=== PATIENT | female | born 1970 | race Caucasian/White ===

== ENCOUNTER 2016-09-09 15:15 | Observation (INO) | payer OTHER ==
[~2016-09-09] VITALS: Ht 172.7 cm; Wt 124.3 kg
--- NOTE | 2016-09-09 16:25 | DIAGNOSTIC IMAGING REPORT ---
PROCEDURE: XR CHEST 1 VIEW INDICATION: CHEST PAIN TECHNIQUE: Portable AP view (1535 hours). COMPARISON: None. FINDINGS: Allowing for overlying wires and electrodes, lungs are clear. Heart and mediastinum are normal. Thorax is normal. IMPRESSION: 1. Negative chest.
--- NOTE | 2016-09-09 16:36 | ED NURSING NOTES ---
Clinical Report - Nurses [facility] [address] [place] [address] 09/09/2016 15:18 Patient: CHRISTA BANGURA TRIAGE Triage time 15:23 Sep 09 2016. Acuity: LEVEL 2. Chief Complaint: CHEST PAIN. Alert. No acute distress. --15:35 Renae Harris R.N. 15:23 09/09/16. BP: 136/71. HR: 71. RR: 20. O2 saturation: 98%. Temp: 98.5 F. Pain level now: 09/22. --15:35 Renae Harris R.N. Weight: 122.4 kg stated. Height/Length: 68 inches Per Patient. BMI: 41. --15:22 Mandi Phelan R.N. Medications ZyrTEC Allergy Oral (Tablet 10 mg) 1 tablet. --15:26 Renae Harris R.N. Buproban Oral (Tablet Extended Release 12 Hour 150 mg) 1 tablet, TID. --15:26 Renae Harris R.N. Ventolin HFA Inhalation 1 puff, as needed. --15:27 Renae Harris R.N. Baclofen 1 tab, at bedtime. --15:29 Renae Harris R.N. Naproxen Oral (Tablet 500 mg), 3x a day as needed. --15:30 Renae Harris R.N. Allergies No Known Drug Allergy. --15:28 Renae Harris R.N. History Arrived by private vehicle. Historian: patient. Accompanied by family. 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 This started just prior to arrival. She has had difficulty breathing. No nausea or vomiting. Treatment NOVELTY DIPPER: None. PAST MEDICAL HX: Immunizations: up-to-date. Last normal menstrual period was 2 weeks ago. Denies current . SOCIAL HX: Never smoker. Occasional alcohol use; consumes wine occasionally. Last drink was 1 weeks ago. No drug use. No infectious disease exposure. FALL RISK ASSESSMENT: Fall risk assessment completed. No fall risk identified. NUTRITIONAL RISK ASSESSMENT: The nutritional risk assessment revealed no deficiencies. FUNCTIONAL ASSESSMENT: Functional assessment: no impairments noted. LEARNING NEEDS ASSESSMENT: The learning needs assessment revealed no barriers. SKIN INTEGRITY ASSESSMENT: Skin integrity risk assessment completed. No skin integrity risk identified. --15:35 Renae Harris R.N. PROBLEMS: Depression. Asthma. Anxiety Reaction. Back spasms. --15:32 Renae Harris R.N. 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 . Oral surgery. --15:32 Renae Harris R.N. Interventions ID band on patient. --15:35 Renae Harris R.N. PHYSICAL ASSESSMENT GENERAL / NEURO / PSYCH: Alert. Oriented X 4. Appears in no acute distress. RESPIRATORY: Respirations not labored. CVS: Capillary refill less than 2 seconds. GI / : Abdomen nontender. EXTREMITIES: No lower extremity edema. SKIN: Skin is warm and dry. --15:35 Renae Harris R.N. NURSING PROGRESS NOTES <<STRICKEN ENTRY-- clinical research monitor, pulse oximeter and NIBP monitor placed on patient; monitoring manager- Lead II; monitor alarms on. EKG time: (15:30 Sep 09 2016). EKG was performed by a tech and shown to the ED physician. Patient gowned. Head of bed elevated. Two patient identifiers checked. Call light placed in reach. Side rails up x 1. Bed placed in lowest position. Brakes of bed on. Patient ready for evaluation. --15:36 Renae Harris R.N. --END STRIKE>> wrong time for EKG --15:57 Renae Harris R.N. 15:32 09/09/2016 Site #1 started via IV in the right antecubital space with an 20g angiocath; one attempt. Blood drawn: rainbow set. Labeled in the presence of the patient and sent to the lab. Saline lock flushed with 10 mL saline. --15:37 Renae Harris R.N. EKG time: (15:28 AM). EKG was performed by a tech and shown to the ED physician. --15:49 Ari Lares 15:51 09/09/2016 Aspirin PO Tablets 325 mg given. Allergies verified and confirmed 5 rights. --15:55 Jac Frias R.N. <<STRICKEN ENTRY-- 15:52 09/09/2016 Aspirin PO Tablets 325 mg given. Allergies verified and confirmed 5 rights. --15:55 Jac Frias R.N. --END STRIKE>> Change to Details. --15:55 Jac Frias R.N. 15:52 09/09/2016 Nitroglycerin SL Tablets 0.4 mg given. Allergies verified and confirmed 5 rights. --15:56 Jac Frias R.N. 15:52 09/09/2016 NITROGLYCERIN PASTE Topical Paste 1 inch. Applied to the left chest. Allergies verified and confirmed 5 rights. --15:56 Jac Frias R.N. clinical research monitor, pulse oximeter and NIBP monitor placed on patient; monitoring manager- Lead II; monitor alarms on. EKG time: (15:28 Sep 09 2016). EKG was performed by a tech and shown to the ED physician. Patient gowned. Head of bed elevated. Two patient identifiers checked. Call light placed in reach. Side rails up x 1. Bed placed in lowest position. Brakes of bed on. Patient ready for evaluation. --15:57 Renae Harris R.N. 16:10 09/09/16. BP: 117/68. HR: 75. O2 saturation: 100%. Pain level now 08/25. --16:11 Mandi Phelan R.N. ( Nitro #2.). --16:11 Mandi Phelan R.N. 16:41 09/09/16. BP: 127/71. HR: 79. RR: 18. O2 saturation: 100%. Pain level now 07/25. --16:42 Mandi Phelan R.N. ( Nitro #3.). --16:42 Mandi Phelan R.N. 16:45 09/09/2016 Lovenox (Enoxaparin Sodium) Subcutaneous 100 mg given. Given in the right abdomen. --16:45 Mandi Phelan R.N. DISPOSITION / DISCHARGE Admitted to Acute Care. Report was given to a nurse. Report included patient's care, treatment, medications, reviewed medication reconcilliation, and condition (including any recent changes or anticipated changes). (HAN Velazquez). --17:08 Mandi Phelan R.N. Cardiac rhythm: normal sinus rhythm. Condition at departure: stable. --17:13 Mandi Phelan R.N. 17:13 09/09/16. BP: 126/56. HR: 76. RR: 18. O2 saturation: 100%. Pain level now 0/10. --17:13 Mandi Phelan R.N. Departure time: 17:20 Sep 09 2016. --17:20 Mandi Phelan R.N. ( pt taken up by JOAO Chapman). --17:21 Mandi Phelan R.N. Locked/Released at 09/10/2016 22:31 by Renae Harris R.N.
--- NOTE | 2016-09-09 16:36 | ED CLINICAL REPORT ---
Clinical Report - Physicians/Mid Levels [facility] [address] [place] [address] 09/09/2016 15:18 Patient: CHRISTA BANGURA Time Seen: 15:26. Arrived- By private vehicle. Historian- patient. HISTORY OF PRESENT ILLNESS Chief Complaint: CHEST DISCOMFORT. At its maximum, severity described as moderate. When seen in the E.D., severity described as mild. Modifying factors. Not worsened by anything. Not relieved by anything. This started about 1 hour ago and is still present. It was gradual in onset and has been waxing/waning. Onset during light activity. It is described as pressure and it is described as located in the central chest area, jaw and neck and radiating to the neck and to the right jaw. No nausea, vomiting or diaphoresis. She has had mild difficulty breathing. Similar symptoms previously: None. Recent medical care: The patient was seen recently in a clinic. Seen for other problems. Evaluation/treatment- given naproxen and baclofen. Diagnosis: (back pain). REVIEW OF SYSTEMS Last normal menstrual period was 2 weeks ago. No fever, chills, cough, pedal edema or calf pain. No fainting episodes, headache, sore throat, blurred vision or abdominal pain. No black stools, difficulty with urination, skin rash, enlarged lymph nodes or bloody stools. The patient has had joint pain (back pain). All systems otherwise negative, except as recorded above. PAST HISTORY PCP: Dr Jefferson ([facility]) PROBLEMS: GERD. Depression. Asthma. Environmental allergies. Anxiety Reaction. Back pain. 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 . Oral surgery. Medications: Naproxen Oral (Tablet 500 mg), 3x a day as needed. Baclofen 1 tab, at bedtime. Ventolin HFA Inhalation 1 puff, as needed. Buproban Oral (Tablet Extended Release 12 Hour 150 mg) 1 tablet, TID. ZyrTEC Allergy Oral (Tablet 10 mg) 1 tablet. Allergies: No Known Drug Allergy. SOCIAL HISTORY Never smoker. Occasional alcohol use. No drug use. Is a local resident. Patient is employed. (works for the [employer]). FAMILY HISTORY History of heart disease (father from viral cardiomyopathy age 39 y; Grandfather from [place] in 60's y/o). ADDITIONAL NOTES The nursing notes have been reviewed. PHYSICAL EXAM Vital Signs: 09/09/2016 15:23 BP: 136/71. HR: 71. RR: 20. O2 saturation: 98%. Temp: 98.5 F. Pain level now: 310. Appearance: Alert. Oriented X3. No acute distress. Eyes: Pupils equal, round and reactive to light. Eyes normal inspection. No scleral icterus or pale conjunctivae. ENT: Pharynx normal. No pharyngeal erythema or tonsillar exudate. The mucous membranes are not dry. Neck: Normal inspection. Neck supple. CVS: Normal heart rate and rhythm. Heart sounds normal. Pulses normal. Respiratory: No respiratory distress. Breath sounds normal. Chest nontender. No chest pain reproduced on physical exam, decreased air movement, rales, rhonchi or wheezes. Abdomen: Soft and nontender. No mass. Back: Normal external inspection. Skin: Skin warm and dry. Normal skin color. Normal skin turgor. Extremities: Extremities exhibit normal ROM. No lower extremity edema. Neuro: Oriented X 3. No motor deficit. LABS, X-RAYS, AND EKG EKG: EKG time: (15:28). Normal sinus rhythm. Rate: 70. Normal P waves. Normal PARISH. Nondiagnostic Q waves in lead III, aVF and V2 (small R in V3). Non-specific ST segment / T wave abnormalities. Non-specific T wave flattening in lead aVF. Non-specific T wave inversion in lead III, aVR and V3. Prior EKG unavailable. The study has been interpreted contemporaneously by me. The EKG appears to be a good tracing. Rhythm Strip #1: Normal sinus rhythm. Regular rhythm. Narrow QRS complexes. No ectopy. Chest X-ray: No acute disease. Normal lung markings present. Normal heart size. Mediastinum normal. Great vessels normal. No infiltrate. Views: AP (portable). Technique: good. The X-rays were interpreted contemporaneously by me. Laboratory Tests: CBC w Diff: (CASH: 09/09/2016 15:35) ( MsgRcvd 09/09/2016 15:48) Final results Test Result Flag Units (Reference) WHITE BLOOD COUNT 7.1 K/uL (4.5-11.5) RED BLOOD COUNT 4.65 M/uL (4.00-5.20) HEMOGLOBIN 13.6 gm/dL (12.0-16.0) HEMATOCRIT 40.7 % (36.0-46.0) MEAN CELL VOLUME 88 fL (80-100) MEAN CORPUSCULAR HGB 29 pg (26-34) MEAN CORPUSCULAR HGB CONC 34 g/dL (31-37) RED CELL DISTRIBUTION WIDTH 13.3 % (11.6-14.8) PLATELET COUNT 222 K/uL (150-400) NEUTROPHIL % 56.5 % (50-75) LYMPH % 29.8 % (25-40) MONO % 8.9 % (3-14) EOSINOPHIL % 4.4 H % (0-4) BASOPHIL % 0.4 % (0-2) PT with INR: (CASH: 09/09/2016 15:35) ( MsgRcvd 09/09/2016 16:01) Final results Test Result Flag Units (Reference) INR 1.0 (0.8-1.2) Low Intensity Therapy: INR 1.5-2.0 PT range 18.5-23.1Mod.Intensity Therapy: INR 2.0-3.0 PT range 23.1-31.5High Intensity Therapy: INR 2.5-3.5 PT range 27.4-35.5High Intensity Therapy 2: INR 3.0-4.0 PT range 31.5-39.3 D-DIMER QUANTITATIVE < 0.27 L ug/mLFEU (0.27-0.52) The primary value of this quantitative assay relates toits negative predictive value (i.e. exclusion) of pulmonaryembolism/deep vein thrombosis/DIC.Elevated levels of d-dimer may also occur with:, age, cancer, inflammation, liver disease,post-op, infection, hematoma, coronary disease, peripheralarteriopathy, bleeding disorders and thrombolytic treatment.Results should be correlated with other clinical andradiological data.Testing Methodology: Latex Immunoassay BNP: (CASH: 09/09/2016 15:35) ( [facility] [place] 09/09/2016 16:20) Final results Test Result Flag Units (Reference) B-TYPE NATRIURETIC PEPTIDE 5.2 pg/ml (5-100) Amylase: (CASH: 09/09/2016 15:35) ( [facility] [place] 09/09/2016 16:11) Final results Test Result Flag Units (Reference) AMYLASE 52 U/L (25-115) THYROID STIMULATING HORMONE 2.135 uIU/mL (0.34-3.74) CHEM 13 PANEL: (CASH: 09/09/2016 15:35) ( [facility] [place] [place] 09/09/2016 16:02) Final results Test Result Flag Units (Reference) GLUCOSE 100 mg/dL (70-110) BUN 14 mg/dL (7-18) CREATININE 0.8 mg/dL (0.6-1.3) Estimated GFR >60 mL/min Estimated GFR- >60 mL/min Note: Persistent reduction over 3 months in eGFR<60 mL/min/1.73 m2 defines CKD. Patients with eGFR values>=60 mL/min/1.73 m2 may also have CKD if evidence ofpersistent proteinuria. Additional information may be foundat www.kidney.org. SODIUM 142 mmol/L (136-145) POTASSIUM 4.0 mmol/L (3.5-5.1) CHLORIDE 107 mmol/L (98-107) CARBON DIOXIDE 25 mmol/L (21-32) CALCIUM 8.3 L mg/dL (8.5-10.1) TOTAL PROTEIN 7.2 g/dL (6.4-8.2) ALBUMIN 3.7 g/dL (3.3-5.0) BILIRUBIN, TOTAL 0.3 mg/dL (0.0-1.0) ALKALINE PHOSPHATASE 59 U/L (46-116) AST (SGOT) 10 L U/L (15-37) ALT (SGPT) 27 U/L (12-78) CPK 125 U/L (24-260) MAGNESIUM 1.8 mg/dL (1.8-2.4) TROPONIN I <0.05 L ng/mL (0.00-1.5) TROPONIN REFERENCE RANGE:<0.1 NEGATIVE0.1-1.5 INDETERMINANT>1.5 POSITIVE . Pulse Oximetry: 09/09/2016 15:23 O2 saturation: 98%. (FIO2 - room air). Interpretation: normal. PROGRESS AND PROCEDURES Course of Care: Nitroglycerin 1 inch paste given. Nitroglycerin 0.4 mg tab x3 SL given. Normal Saline 1 liter IVPB given. ASA 325 mg PO given. Lovenox 100 mg subQ given. Pt states she has had GERD, but "this feels different" Patient is stable. Physical exam findings are improved. Symptoms much better. Discussed case with hospitalist, ([place] call placed 16:17; call returned 16:32). Reviewed test results. Agreed upon treatment plan and decision to place in observation. Health care provider will see patient in hospital. Patient/family counseled. Disposition orders written. Disposition: Observation in Acute Care. Condition: stable and improved. CLINICAL IMPRESSION Precordial chest pain characterized as "tightness" .12 lead EKG performed. (Electronically signed by Mando Diaz DO 09/09/2016 21:34)
--- NOTE | 2016-09-09 16:36 | ED ORDER SUMMARY ---
..... Patient: CHRISTA BANGURA [facility] VisitID: [id number] [place] [address] 45y, F Registration Date/Time: 09/09/2016 ORDER SHEET Weight: 122.4 kg (stated) Allergies: No Known Drug Allergy GENERAL ORDERS: Foundry Superintendant (Continuous) (15:09/09/2016 PHutchinson DO) (15:39 MWinterer R.N.) Chest 1V Urgent (15:09/09/2016 PHutchinson DO) (Ack 15:32 LTapper) (16:09 SBalde R.N.) UA-Culture if indicated Urgent (:09/09/2016 PHwvchinson DO) (Ack 15:32 LTapper) Cardiac Panel Stat (:09/09/2016 PHwvchinson DO) (Ack 15:32 LTapper) (15:40 MWinterer R.N.) BNP Urgent (15:09/09/2016 PHutchinson DO) (Ack 15:32 LTapper) (15:40 MWinterer R.N.) D-Dimer Urgent (15:09/09/2016 PHutchinson DO) (Ack 15:32 LTapper) (15:40 MWinterer R.N.) Amylase Urgent (15:09/09/2016 PHutchinson DO) (Ack 15:32 LTapper) (15:40 MWinterer R.N.) PT with INR Urgent (15:09/09/2016 PHutchinson DO) (Ack 15:32 LTapper) (15:40 MWinterer R.N.) TSH Urgent (15:09/09/2016 PHutchinson DO) (Ack 15:32 LTapper) (15:40 MWinterer R.N.) Urine Drug Screen Urgent (:09/09/2016 PHutchinson DO) (Ack 15:32 LTapper) Urine Urgent (15:09/09/2016 PHutchinson DO) (Ack 15:32 LTapper) Oxygen (2 L/min) (NC) (15:09/09/2016 [facility]) (15:39 MWinterer R.N.) Pulse oximeter (15:29 09/09/2016 [facility]) (15:39 MWinterer R.N.) EKG - ER Stat (15:29 09/09/2016 [facility]) (Ack 15:32 LTapper) (15:39 MWinterer R.N.) Vitals (15:29 09/09/2016 [facility]) (15:39 MWinterer R.N.) Call (Place call to): (Dr [place]) (16:13 09/09/2016 [facility]) (16:18 Afsaneh) MEDICATION ORDERS: Aspirin PO 325 mg (NOW) (15:29 09/09/2016 [facility]) (15:55 KWilliams R.N.) NitroGLYCERIN SL 0.4 mg (x3 PRN Chest Pain) (15:46 09/09/2016 [facility]) (15:56 KWilliams R.N.) NitroGLYCERIN Paste Topical 1 in. (NOW, to CW) (15:47 09/09/2016 [facility]) (15:56 KWilliams R.N.) Lovenox Subcut 100 mg (HIGH ALERT MEDICATION, NOW) (16:28 09/09/2016 [facility]) (Ack 16:38 SBalde R.N.) (16:45 SBalde R.N.) IV FLUIDS: IV Saline Lock (15:29 09/09/2016 [facility]) (15:55 KWilliams R.N.) ORDER SHEET NOTES: [Electronically signed by Mando Diaz DO (21:34 09/09/2016)] [Electronically signed by Renae Harris R.N. (22:31 09/10/2016)] [Electronically locked/signed by Renae Harris R.N. (22:31 09/10/2016)]
--- NOTE | 2016-09-09 16:36 | ED CLINICAL REPORT ---
Clinical Report - Physicians/Mid Levels [facility] [address] [place] [address] 09/09/2016 15:18 Patient: CHRISTA BANGURA Time Seen: 15:26. Arrived- By private vehicle. Historian- patient. HISTORY OF PRESENT ILLNESS Chief Complaint: CHEST DISCOMFORT. At its maximum, severity described as moderate. When seen in the E.D., severity described as mild. Modifying factors. Not worsened by anything. Not relieved by anything. This started about 1 hour ago and is still present. It was gradual in onset and has been waxing/waning. Onset during light activity. It is described as pressure and it is described as located in the central chest area, jaw and neck and radiating to the neck and to the right jaw. No nausea, vomiting or diaphoresis. She has had mild difficulty breathing. Similar symptoms previously: None. Recent medical care: The patient was seen recently in a clinic. Seen for other problems. Evaluation/treatment- given naproxen and baclofen. Diagnosis: (back pain). REVIEW OF SYSTEMS Last normal menstrual period was 2 weeks ago. No fever, chills, cough, pedal edema or calf pain. No fainting episodes, headache, sore throat, blurred vision or abdominal pain. No black stools, difficulty with urination, skin rash, enlarged lymph nodes or bloody stools. The patient has had joint pain (back pain). All systems otherwise negative, except as recorded above. PAST HISTORY PCP: Dr Jefferson ([facility]) PROBLEMS: GERD. Depression. Asthma. Environmental allergies. Anxiety Reaction. Back pain. 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 . Oral surgery. Medications: Naproxen Oral (Tablet 500 mg), 3x a day as needed. Baclofen 1 tab, at bedtime. Ventolin HFA Inhalation 1 puff, as needed. Buproban Oral (Tablet Extended Release 12 Hour 150 mg) 1 tablet, TID. ZyrTEC Allergy Oral (Tablet 10 mg) 1 tablet. Allergies: No Known Drug Allergy. SOCIAL HISTORY Never smoker. Occasional alcohol use. No drug use. Is a local resident. Patient is employed. (works for the [employer]). FAMILY HISTORY History of heart disease (father from viral cardiomyopathy age 39 y; Grandfather from [place] in 60's y/o). ADDITIONAL NOTES The nursing notes have been reviewed. PHYSICAL EXAM Vital Signs: 09/09/2016 15:23 BP: 136/71. HR: 71. RR: 20. O2 saturation: 98%. Temp: 98.5 F. Pain level now: 310. Appearance: Alert. Oriented X3. No acute distress. Eyes: Pupils equal, round and reactive to light. Eyes normal inspection. No scleral icterus or pale conjunctivae. ENT: Pharynx normal. No pharyngeal erythema or tonsillar exudate. The mucous membranes are not dry. Neck: Normal inspection. Neck supple. CVS: Normal heart rate and rhythm. Heart sounds normal. Pulses normal. Respiratory: No respiratory distress. Breath sounds normal. Chest nontender. No chest pain reproduced on physical exam, decreased air movement, rales, rhonchi or wheezes. Abdomen: Soft and nontender. No mass. Back: Normal external inspection. Skin: Skin warm and dry. Normal skin color. Normal skin turgor. Extremities: Extremities exhibit normal ROM. No lower extremity edema. Neuro: Oriented X 3. No motor deficit. LABS, X-RAYS, AND EKG EKG: EKG time: (15:28). Normal sinus rhythm. Rate: 70. Normal P waves. Normal PARISH. Nondiagnostic Q waves in lead III, aVF and V2 (small R in V3). Non-specific ST segment / T wave abnormalities. Non-specific T wave flattening in lead aVF. Non-specific T wave inversion in lead III, aVR and V3. Prior EKG unavailable. The study has been interpreted contemporaneously by me. The EKG appears to be a good tracing. Rhythm Strip #1: Normal sinus rhythm. Regular rhythm. Narrow QRS complexes. No ectopy. Chest X-ray: No acute disease. Normal lung markings present. Normal heart size. Mediastinum normal. Great vessels normal. No infiltrate. Views: AP (portable). Technique: good. The X-rays were interpreted contemporaneously by me. Laboratory Tests: CBC w Diff: (CASH: 09/09/2016 15:35) ( MsgRcvd 09/09/2016 15:48) Final results Test Result Flag Units (Reference) WHITE BLOOD COUNT 7.1 K/uL (4.5-11.5) RED BLOOD COUNT 4.65 M/uL (4.00-5.20) HEMOGLOBIN 13.6 gm/dL (12.0-16.0) HEMATOCRIT 40.7 % (36.0-46.0) MEAN CELL VOLUME 88 fL (80-100) MEAN CORPUSCULAR HGB 29 pg (26-34) MEAN CORPUSCULAR HGB CONC 34 g/dL (31-37) RED CELL DISTRIBUTION WIDTH 13.3 % (11.6-14.8) PLATELET COUNT 222 K/uL (150-400) NEUTROPHIL % 56.5 % (50-75) LYMPH % 29.8 % (25-40) MONO % 8.9 % (3-14) EOSINOPHIL % 4.4 H % (0-4) BASOPHIL % 0.4 % (0-2) PT with INR: (CASH: 09/09/2016 15:35) ( MsgRcvd 09/09/2016 16:01) Final results Test Result Flag Units (Reference) INR 1.0 (0.8-1.2) Low Intensity Therapy: INR 1.5-2.0 PT range 18.5-23.1Mod.Intensity Therapy: INR 2.0-3.0 PT range 23.1-31.5High Intensity Therapy: INR 2.5-3.5 PT range 27.4-35.5High Intensity Therapy 2: INR 3.0-4.0 PT range 31.5-39.3 D-DIMER QUANTITATIVE < 0.27 L ug/mLFEU (0.27-0.52) The primary value of this quantitative assay relates toits negative predictive value (i.e. exclusion) of pulmonaryembolism/deep vein thrombosis/DIC.Elevated levels of d-dimer may also occur with:, age, cancer, inflammation, liver disease,post-op, infection, hematoma, coronary disease, peripheralarteriopathy, bleeding disorders and thrombolytic treatment.Results should be correlated with other clinical andradiological data.Testing Methodology: Latex Immunoassay BNP: (CASH: 09/09/2016 15:35) ( [facility] [place]) Final results Test Result Flag Units (Reference) B-TYPE NATRIURETIC PEPTIDE 5.2 pg/ml (5-100) Amylase: (CASH: 09/09/2016 15:35) ( [facility] [place]/09/[place] 16:11) Final results Test Result Flag Units (Reference) AMYLASE 52 U/L (25-115) THYROID STIMULATING HORMONE 2.135 uIU/mL (0.34-3.74) CHEM 13 PANEL: (CASH: 09/09/2016 15:35) ( [facility] [place] 16:02) Final results Test Result Flag Units (Reference) GLUCOSE 100 mg/dL (70-110) BUN 14 mg/dL (7-18) CREATININE 0.8 mg/dL (0.6-1.3) Estimated GFR >60 mL/min Estimated GFR- >60 mL/min Note: Persistent reduction over 3 months in eGFR<60 mL/min/1.73 m2 defines CKD. Patients with eGFR values>=60 mL/min/1.73 m2 may also have CKD if evidence ofpersistent proteinuria. Additional information may be foundat www.kidney.org. SODIUM 142 mmol/L (136-145) POTASSIUM 4.0 mmol/L (3.5-5.1) CHLORIDE 107 mmol/L (98-107) CARBON DIOXIDE 25 mmol/L (21-32) CALCIUM 8.3 L mg/dL (8.5-10.1) TOTAL PROTEIN 7.2 g/dL (6.4-8.2) ALBUMIN 3.7 g/dL (3.3-5.0) BILIRUBIN, TOTAL 0.3 mg/dL (0.0-1.0) ALKALINE PHOSPHATASE 59 U/L (46-116) AST (SGOT) 10 L U/L (15-37) ALT (SGPT) 27 U/L (12-78) CPK 125 U/L (24-260) MAGNESIUM 1.8 mg/dL (1.8-2.4) TROPONIN I <0.05 L ng/mL (0.00-1.5) TROPONIN REFERENCE RANGE:<0.1 NEGATIVE0.1-1.5 INDETERMINANT>1.5 POSITIVE . Pulse Oximetry: 09/09/2016 15:23 O2 saturation: 98%. (FIO2 - room air). Interpretation: normal. PROGRESS AND PROCEDURES Course of Care: Nitroglycerin 1 inch paste given. Nitroglycerin 0.4 mg tab x3 SL given. Normal Saline 1 liter IVPB given. ASA 325 mg PO given. Lovenox 100 mg subQ given. Pt states she has had GERD, but "this feels different" Patient is stable. Physical exam findings are improved. Symptoms much better. Discussed case with hospitalist, ([place] call placed 16:17; call returned 16:32). Reviewed test results. Agreed upon treatment plan and decision to place in observation. Health care provider will see patient in hospital. Patient/family counseled. Disposition orders written. Disposition: Observation in Acute Care. Condition: stable and improved. CLINICAL IMPRESSION Precordial chest pain characterized as "tightness" .12 lead EKG performed. (Electronically signed by Mando Diaz DO 09/09/2016 21:34)
--- NOTE | 2016-09-09 16:36 | ED ORDER SUMMARY ---
..... Patient: CHRISTA BANGURA OrderSheet [facility] VisitID: [id number] [place] [address] 45y, F Registration Date/Time: 09/09/2016 ORDER SHEET Weight: 122.4 kg (stated) Allergies: No Known Drug Allergy GENERAL ORDERS: Vault Installer (Continuous) (15:09/09/2016 PHutchinson DO) (15:39 MWinterer R.N.) Chest 1V Urgent (15:09/09/2016 PHutchinson DO) (Ack 15:32 LTapper) (16:09 SBalde R.N.) UA-Culture if indicated Urgent (:09/09/2016 PHinchinson DO) (Ack 15:32 LTapper) Cardiac Panel Stat (:09/09/2016 PHinchinson DO) (Ack 15:32 LTapper) (15:40 MWinterer R.N.) BNP Urgent (15:09/09/2016 PHutchinson DO) (Ack 15:32 LTapper) (15:40 MWinterer R.N.) D-Dimer Urgent (15:09/09/2016 PHutchinson DO) (Ack 15:32 LTapper) (15:40 MWinterer R.N.) Amylase Urgent (15:09/09/2016 PHutchinson DO) (Ack 15:32 LTapper) (15:40 MWinterer R.N.) PT with INR Urgent (15:09/09/2016 PHutchinson DO) (Ack 15:32 LTapper) (15:40 MWinterer R.N.) TSH Urgent (15:09/09/2016 PHutchinson DO) (Ack 15:32 LTapper) (15:40 MWinterer R.N.) Urine Drug Screen Urgent (:09/09/2016 PHutchinson DO) (Ack 15:32 LTapper) Urine Urgent (15:09/09/2016 PHutchinson DO) (Ack 15:32 LTapper) Oxygen (2 L/min) (NC) (15:09/09/2016 [facility]) (15:39 MWinterer R.N.) Pulse oximeter (15:29 09/09/2016 [facility]) (15:39 MWinterer R.N.) EKG - ER Stat (15:29 09/09/2016 [facility]) (Ack 15:32 LTapper) (15:39 MWinterer R.N.) Vitals (15:29 09/09/2016 [facility]) (15:39 MWinterer R.N.) Call (Place call to): (Dr Stockton) (16:13 09/09/2016 [facility]) (16:18 Afsaneh) MEDICATION ORDERS: Aspirin PO 325 mg (NOW) (15:29 09/09/2016 [facility]) (15:55 KWilliams R.N.) NitroGLYCERIN SL 0.4 mg (x3 PRN Chest Pain) (15:46 09/09/2016 [facility]) (15:56 KWilliams R.N.) NitroGLYCERIN Paste Topical 1 in. (NOW, to CW) (15:47 09/09/2016 [facility]) (15:56 KWilliams R.N.) Lovenox Subcut 100 mg (HIGH ALERT MEDICATION, NOW) (16:28 09/09/2016 [facility]) (Ack 16:38 SBalde R.N.) (16:45 SBalde R.N.) IV FLUIDS: IV Saline Lock (15:29 09/09/2016 [facility]) (15:55 KWilliams R.N.) ORDER SHEET NOTES: [Electronically signed by Mando Diaz DO (21:34 09/09/2016)] [Electronically signed by Renae Harris R.N. (22:31 09/10/2016)] [Electronically locked/signed by Renae Harris R.N. (22:31 09/10/2016)]
--- NOTE | 2016-09-09 16:36 | ED NURSING NOTES ---
Clinical Report - Nurses [facility] [address] [place] [address] 09/09/2016 15:18 Patient: CHRISTA BANGURA TRIAGE Triage time 15:23 Sep 09 2016. Acuity: LEVEL 2. Chief Complaint: CHEST PAIN. Alert. No acute distress. --15:35 Renae Harris R.N. 15:23 09/09/16. BP: 136/71. HR: 71. RR: 20. O2 saturation: 98%. Temp: 98.5 F. Pain level now: 09/22. --15:35 Renae Harris R.N. Weight: 122.4 kg stated. Height/Length: 68 inches Per Patient. BMI: 41. --15:22 Mandi Phlean R.N. Medications ZyrTEC Allergy Oral (Tablet 10 mg) 1 tablet. --15:26 Renae Harris R.N. Buproban Oral (Tablet Extended Release 12 Hour 150 mg) 1 tablet, TID. --15:26 Renae Harris R.N. Ventolin HFA Inhalation 1 puff, as needed. --15:27 Renae Harris R.N. Baclofen 1 tab, at bedtime. --15:29 Renae Harris R.N. Naproxen Oral (Tablet 500 mg), 3x a day as needed. --15:30 Renae Harris R.N. Allergies No Known Drug Allergy. --15:28 Renae Harris R.N. History Arrived by private vehicle. Historian: patient. Accompanied by family. 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 This started just prior to arrival. She has had difficulty breathing. No nausea or vomiting. 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 PAST MEDICAL HX: Immunizations: up-to-date. Last normal menstrual period was 2 weeks ago. Denies current . SOCIAL HX: Never smoker. Occasional alcohol use; consumes wine occasionally. Last drink was 1 weeks ago. No drug use. No infectious disease exposure. FALL RISK ASSESSMENT: Fall risk assessment completed. No fall risk identified. NUTRITIONAL RISK ASSESSMENT: The nutritional risk assessment revealed no deficiencies. FUNCTIONAL ASSESSMENT: Functional assessment: no impairments noted. LEARNING NEEDS ASSESSMENT: The learning needs assessment revealed no barriers. SKIN INTEGRITY ASSESSMENT: Skin integrity risk assessment completed. No skin integrity risk identified. --15:35 Renae Harris R.N. PROBLEMS: Depression. Asthma. Anxiety Reaction. Back spasms. --15:32 Renae Harris R.N. 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 . Oral surgery. --15:32 Renae Harris R.N. Interventions ID band on patient. --15:35 Renae Harris R.N. PHYSICAL ASSESSMENT GENERAL / NEURO / PSYCH: Alert. Oriented X 4. Appears in no acute distress. RESPIRATORY: Respirations not labored. CVS: Capillary refill less than 2 seconds. GI / : Abdomen nontender. EXTREMITIES: No lower extremity edema. SKIN: Skin is warm and dry. --15:35 Renae Harris R.N. NURSING PROGRESS NOTES <<STRICKEN ENTRY-- chain maker, pulse oximeter and NIBP monitor placed on patient; marketing engineer- Lead II; monitor alarms on. EKG time: (15:30 Sep 09 2016). EKG was performed by a tech and shown to the ED physician. Patient gowned. Head of bed elevated. Two patient identifiers checked. Call light placed in reach. Side rails up x 1. Bed placed in lowest position. Brakes of bed on. Patient ready for evaluation. --15:36 Renae Harris R.N. --END STRIKE>> wrong time for EKG --15:57 Renae Harris R.N. 15:32 09/09/2016 Site #1 started via IV in the right antecubital space with an 20g angiocath; one attempt. Blood drawn: rainbow set. Labeled in the presence of the patient and sent to the lab. Saline lock flushed with 10 mL saline. --15:37 Renae Harris R.N. EKG time: (15:28 AM). EKG was performed by a tech and shown to the ED physician. --15:49 [place] Lares 15:51 09/09/2016 Aspirin PO Tablets 325 mg given. Allergies verified and confirmed 5 rights. --15:55 Jac Frias R.N. <<STRICKEN ENTRY-- 15:52 09/09/2016 Aspirin PO Tablets 325 mg given. Allergies verified and confirmed 5 rights. --15:55 Jac Frias R.N. --END STRIKE>> Change to Details. --15:55 Jac Frias R.N. 15:52 09/09/2016 Nitroglycerin SL Tablets 0.4 mg given. Allergies verified and confirmed 5 rights. --15:56 Jac Frias R.N. 15:52 09/09/2016 NITROGLYCERIN PASTE Topical Paste 1 inch. Applied to the left chest. Allergies verified and confirmed 5 rights. --15:56 Jac Frias R.N. chain maker, pulse oximeter and NIBP monitor placed on patient; marketing engineer- Lead II; monitor alarms on. EKG time: (15:28 Sep 09 2016). EKG was performed by a tech and shown to the ED physician. Patient gowned. Head of bed elevated. Two patient identifiers checked. Call light placed in reach. Side rails up x 1. Bed placed in lowest position. Brakes of bed on. Patient ready for evaluation. --15:57 Renae Harris R.N. 16:10 09/09/16. BP: 117/68. HR: 75. O2 saturation: 100%. Pain level now 08/25. --16:11 Mandi Phelan R.N. ( Nitro #2.). --16:11 Mandi Phelan R.N. 16:41 09/09/16. BP: 127/71. HR: 79. RR: 18. O2 saturation: 100%. Pain level now 07/25. --16:42 Mandi Phelan R.N. ( Nitro #3.). --16:42 Mandi Phelan R.N. 16:45 09/09/2016 Lovenox (Enoxaparin Sodium) Subcutaneous 100 mg given. Given in the right abdomen. --16:45 Mandi Phelan R.N. DISPOSITION / DISCHARGE Admitted to Acute Care. Report was given to a nurse. Report included patient's care, treatment, medications, reviewed medication reconcilliation, and condition (including any recent changes or anticipated changes). (HAN Velazquez). --17:08 Mandi Phelan R.N. Cardiac rhythm: normal sinus rhythm. Condition at departure: stable. --17:13 Mandi Phelan R.N. 17:13 09/09/16. BP: 126/56. HR: 76. RR: 18. O2 saturation: 100%. Pain level now 0/10. --17:13 Mandi Phelan R.N. Departure time: 17:20 Sep 09 2016. --17:20 Mandi Phelan R.N. ( pt taken up by JOAO Chapman). --17:21 Mandi Phelan R.N. Locked/Released at 09/10/2016 22:31 by Renae Harris R.N.
[2016-09-09 17:39] VITALS: BP 136/66
--- NOTE | 2016-09-09 17:45 | History & Physical Report ---
Admission Admit Date 09/09/16 Information Source Information Source: Self, ED Record History Chief Complaint Chest pain History of Present Illness 45yoF w/ hx of GERD, depression, asthma, who presents with chest pain that started at about 2:15pm. Patient states she was at home knitting when she developed heartburn like symptoms with burning in the center of her chest. She tried lying down, but symptoms got worse. She then noted that the burning went away but "still felt like heartburn" but with an additional feeling of pressure in the center of her chest. She also noted pain going into her R arm and up the back of her neck into the R side of her jaw and face. Her noted that her breathing seemed heavier. She decided at that time to present to the ER after googling her symptoms. She has occasional heartburn, but has never had symptoms to this extent in the past. She denies ever seeing a allergist immunologist in the past, and has never had a stress test. She notes that she has had "fluttering" in her chest over the last month or so, and she was supposed to have this checked by her PCP soon. She also endorses a lot of recent stress, as her mom was just taken off the transplant list for her liver. Of note, she did start having back spasms earlier this week, and went to an urgent care on . She was prescribed naproxen and baclofen. Prior to this, she was using ibuprofen for pain. Her pain is still present, though better than before, and she denies any issues with breathing at this time. She denied nausea, diaphoresis, fevers. She normally is able to ambulate without any anginal symptoms. Family History: father had viral CM and of heart failure. pgpa had CAD. Patient History 1. GERD (gastroesophageal reflux disease) 2. Asthma 3. Back spasm Social History She denies any history of tobacco or drug use. Drinks only occasionally. Medications and Allergies Medications Current Medications Sig/Simone Start time Last Medication Dose Route Stop Time Status Admin Aspirin 81 MG DAILY 09/10 0900 AC PO Atorvastatin Calcium 80 MG QPM 09/09 1800 AC PO Acetaminophen 650 MG Q6H PRN 09/09 1730 AC PO Al Hydrox/Mg Hydrox/ 15 ML Q1H PRN 09/09 1730 AC Simethicone PO Docusate Sodium 250 MG BID PRN 09/09 1730 AC PO Magnesium Hydroxide 10 ML DAILY PRN 09/09 1730 AC PO Morphine Sulfate 1 MG Q30MIN PRN 09/09 1730 AC IV Nitroglycerin 0.4 MG Q5M PRN 09/09 1730 AC SL Ondansetron HCl 4 MG Q6H PRN 09/09 1730 UNV IV Pantoprazole Sodium 40 MG DAILY@0600 09/09 1730 UNVr Sesquihydrate PO Acetaminophen 650 MG ONCE PRN 09/09 1645 AC PO 09/09 1845 Ondansetron HCl 4 MG Q4H PRN 09/09 1645 AC IV Sodium Chloride 1,000 ML ASDIRECTED 09/09 1645 AC IV Allergies Coded Allergies: NKA (09/09/16) Review of Systems Other As per HPI, rest of 10-point ROS unremarkable. Physical Exam General Appearance Alert, Oriented X3, Cooperative, No acute distress HEENT Atraumatic, PERRLA, EOMI, Moist mucous membranes Lungs Clear to auscultation Neck Supple, No JVD Cardiovascular Regular rate and rhythm, Normal S1 and S2, No murmurs, gallops, rubs Abdomen Normal bowel sounds, Soft, No tenderness Extremities No cyanosis, No clubbing, No edema Skin No Rashes Neurological Sensation intact, Cranial nerves intact, Strength 5/5 x4 ext's, No lateralizing signs Psych/Mental Status Mental status normal Other Chest wall tender around sternum. +inverted can test on R, no point tenderness in shoulder. No spinal or paraspinal tenderness. LAB Results Laboratory Tests 09/09 09/09 09/09 1535 1535 1535 Chemistry Plasma Sodium (136 - 145 mmol/L) 142 Plasma Potassium (3.5 - 5.1 mmol/L) 4.0 Plasma Chloride (98 - 107 mmol/L) 107 CO2 (Enzymatic) (21 - 32 mmol/L) 25 BUN (7 - 18 mg/dL) 14 Creatinine (0.6 - 1.3 mg/dL) 0.8 Est GFR ( Amer) (mL/min) >60 Est GFR (Non-Af Amer) (mL/min) >60 Glucose (70 - 110 mg/dL) 100 Plasma Calcium (8.5 - 10.1 mg/dL) 8.3 Plasma Magnesium (1.8 - 2.4 mg/dL) 1.8 Total Bilirubin (0.0 - 1.0 mg/dL) 0.3 AST (15 - 37 U/L) 10 ALT (12 - 78 U/L) 27 Alkaline Phosphatase (46 - 116 U/L) 59 Creatine Kinase (24 - 260 U/L) 125 Troponin (0.00 - 1.5 ng/mL) <0.05 B-Natriuretic Peptide (5 - 100 pg/ml) 5.2 Total Protein (6.4 - 8.2 g/dL) 7.2 Albumin (3.3 - 5.0 g/dL) 3.7 Amylase (25 - 115 U/L) 52 TSH 3rd Generation (0.34 - 3.74 uIU/mL) 2.135 Coagulation INR (0.8 - 1.2) 1.0 D-Dimer, Quantitative (0.27 - 0.52 ug/mLFEU) < 0.27 Hematology WBC (4.5 - 11.5 K/uL) 7.1 RBC (4.00 - 5.20 M/uL) 4.65 Hgb (12.0 - 16.0 gm/dL) 13.6 Hct (36.0 - 46.0 %) 40.7 MCV (80 - 100 fL) 88 MCH (26 - 34 pg) 29 RDW (11.6 - 14.8 %) 13.3 Neut % (Auto) (50 - 75 %) 56.5 Lymph % (Auto) (25 - 40 %) 29.8 [place] % (Auto) (3 - 14 %) 8.9 Eos % (Auto) (0 - 4 %) 4.4 Baso % (Auto) (0 - 2 %) 0.4 Plt Count, EDTA (150 - 400 K/uL) 222 PUBS MCHC (31 - 37 g/dL) 34 Imaging CXR: clear EKG: sinus w/ TWI in III, aVF, biphasic in V3. Qwaves in III, avF as well. Assessment and Plan Problem List 1. Chest pain Plan Her symptoms are not typical for ACS, especially as most of them are right sided. Her EKG is not quite normal, but nonspecific. Initial troponin negative. Will monitor on telemetry, cycle troponins, and repeat EKG to eval for changes. Will continue on aspirin and statin for now. Given full dose lovenox in ED, and will hold on any further anticoagulation for now. Will send off lipid and A1c panels in AM. Her ddimer is negative, ruling out PE. 2. GERD (gastroesophageal reflux disease) Plan I have some suspicion that this may be the cause of her pain, especially with an increase in recent NSAID use due to her muscle spasms. Holding her nsaids for now, and will give GI cocktail. Will put on a PPi for now. 3. Asthma Plan Not in acute exacerbation, and generally well-controlled. PRN nebs for now. 4. Back spasm Plan Will continue her baclofen. Will use tylenol and prn morphine for now in place of NSAIDs. 5. LISETTE (obstructive sleep apnea) Plan Will continue nightly cpap. FEN: cardiac PPx: given full dose lovenox, SCDs Code: FULL, per discussion w/ patient on admission Dispo: Obs for above ACS r/o, as will likely require <2MN hospital stay. E&M Codes Rounding: Obsv-Comp/High/[id number]
[2016-09-09] MEDS ORDERED: BACLOFEN10 MG PO (19:22)
[2016-09-09] MEDS ORDERED: BUPROPION HCL150 M2 PO (19:23)
[2016-09-09] MEDS ORDERED: NAPROSYN250 MG PO (19:23)
[2016-09-09] MEDS ORDERED: VENTOLIN HFA IN (19:24)
[2016-09-09] MEDS ORDERED: ZYRTEC ALLERGY10 MG PO (19:24)
[2016-09-09 22:59] VITALS: BP 123/66
[2016-09-10 04:10] VITALS: BP 130/69
[2016-09-10 06:34] VITALS: BP 137/70
[2016-09-10] MEDS ORDERED: ASPIRIN81 M1 PO (08:56)
--- NOTE | 2016-09-10 09:03 | Provider's Discharge Care Plan ---
Problem, Goal, Plan Problem List 1. Chest pain Instructions: Follow up as directed, Take meds as directed, Please continue taking a daily baby aspirin until you have your stress test. Please return to the ER if your symptoms worsen. 2. GERD (gastroesophageal reflux disease) Instructions: Your symptoms are likely due to stomach acid and inflammation of your stomach and esophagus. Please avoid any naproxen or ibuprofen in the future. Please take either over the counter ranitidine (zantac), omeprazole ( prilosec), esomeprazole (nexium), or similar medication for at least 30 days. 3. Asthma Instructions: Continue your inhaler as needed. 4. Back spasm Instructions: You may continue using the baclofen as needed. Avoid naproxen and ibuprofen. You can use 1-2 tablets of extra strength tylenol as needed instead. 5. LISETTE (obstructive sleep apnea) Instructions: Continue using your cpap nightly.
--- NOTE | 2016-09-10 09:14 | Discharge Summary ---
Discharge Summary Report Admit Date 09/09/16 Discharge Date 09/10/16 Admission Diagnosis Chest pain GERD Asthma LISETTE Back spasms Discharge Diagnosis Chest pain, ruled out for ACS GERD, likely exacerbated by recent NSAID use Asthma, well-controlled LISETTE Back Spasms Brief History Per H&P: 45yoF w/ hx of GERD, depression, asthma, who presents with chest pain that started at about 2:15pm. Patient states she was at home knitting when she developed heartburn like symptoms with burning in the center of her chest. She tried lying down, but symptoms got worse. She then noted that the burning went away but "still felt like heartburn" but with an additional feeling of pressure in the center of her chest. She also noted pain going into her R arm and up the back of her neck into the R side of her jaw and face. Her noted that her breathing seemed heavier. She decided at that time to present to the ER after googling her symptoms. She has occasional heartburn, but has never had symptoms to this extent in the past. She denies ever seeing a public relations player in the past, and has never had a stress test. She notes that she has had "fluttering" in her chest over the last month or so, and she was supposed to have this checked by her PCP soon. She also endorses a lot of recent stress, as her mom was just taken off the transplant list for her liver. Of note, she did start having back spasms earlier this week, and went to an urgent care on . She was prescribed naproxen and baclofen. Prior to this, she was using ibuprofen for pain. Her pain is still present, though better than before, and she denies any issues with breathing at this time. She denied nausea, diaphoresis, fevers. She normally is able to ambulate without any anginal symptoms. Hospital Course Patient was admitted for ACS rule out. EKGs remained unchanged, telemetry was unremarkable, and her troponins were all unremarkable. As she is low risk, she will complete a stress test as an outpatient and was instructed to continue a daily aspirin until this is performed. Her symptoms were most likely 2/2 GERD/ gastritis, as her pain improved with GI cocktail. This was likely exacerbated by her recent NSAID use due to back spasms. She was instructed to STOP naproxen and ibuprofen and to use PRN tylenol instead. She may continue her prn baclofen. She was instructed to take an OTC H2 faby or PPI of her choice for the next 30 days. She had no further chest pains during this admission, and was feeling well prior to discharge. She will follow up with her PCP sometime this week. General Appearance Alert, Oriented X3, Cooperative, No acute distress HEENT Mucous membran moist/pink Lungs Normal air movement Cardiovascular Regular Rate, Normal S1, Normal S2, No murmurs Abdomen Normal bowel sounds, Soft, No tenderness Skin No Rashes Neurological Nonfocal Psych/Mental Status Mental status NL, Mood NL Lab/Imaging Laboratory Tests 09/10 09/10 09/10 09/09 0530 0552 [id number] Chemistry Plasma Sodium (136 - 145 mmol/L) 141 Plasma Potassium (3.5 - 5.1 mmol/L) 4.1 Plasma Chloride (98 - 107 mmol/L) 108 CO2 (Enzymatic) (21 - 32 mmol/L) 23 BUN (7 - 18 mg/dL) 14 Creatinine (0.6 - 1.3 mg/dL) 0.8 Est GFR ( Amer) (mL/min) >60 Est GFR (Non-Af Amer) (mL/min) >60 Glucose (70 - 110 mg/dL) 103 Hemoglobin A1c % (4.5 - 6.2 %) 5.5 Plasma Calcium (8.5 - 10.1 mg/dL) 8.1 Plasma Magnesium (1.8 - 2.4 mg/dL) 1.7 Troponin (0.00 - 1.5 ng/mL) Cancelled <0.05 Triglycerides (30 - 200 mg/dL) 120 Cholesterol (140 - 200 mg/dL) 182 LDL Cholesterol, Calc (mg/dL) 111 HDL Cholesterol (32 - 96 mg/dL) 47 LDL/HDL Ratio 2.4 Cholesterol/HDL Ratio 3.9 Coronary Risk Interp (0.4 - 1.0) 0.8 Hematology WBC (4.5 - 11.5 K/uL) 7.8 RBC (4.00 - 5.20 M/uL) 4.28 Hgb (12.0 - 16.0 gm/dL) 12.6 Hct (36.0 - 46.0 %) 37.6 MCV (80 - 100 fL) 88 MCH (26 - 34 pg) 30 RDW (11.6 - 14.8 %) 13.2 Neut % (Auto) (50 - 75 %) 57.2 Lymph % (Auto) (25 - 40 %) 30.2 [place] % (Auto) (3 - 14 %) 7.9 Eos % (Auto) (0 - 4 %) 4.3 Baso % (Auto) (0 - 2 %) 0.4 Plt Count, EDTA (150 - 400 K/uL) 179 PUBS MCHC (31 - 37 g/dL) 34 Urines Urine Test NEGATIVE 09/09 09/09 09/09 09/09 2255 2128 1535 1535 Chemistry Troponin (0.00 - 1.5 ng/mL) <0.05 B-Natriuretic Peptide (5 - 100 pg/ml) 5.2 Amylase (25 - 115 U/L) 52 TSH 3rd Generation (0.34 - 3.74 uIU/mL) 2.135 Toxicology Urine Opiates Screen (NEGATIVE) NEGATIVE Urine Methadone Screen (NEGATIVE) NEGATIVE Ur Barbiturates Screen (NEGATIVE) NEGATIVE U Amphetamin/Meth Scrn (NEGATIVE) NEGATIVE MDMA (Ecstasy) Screen (NEGATIVE) POSITIVE U Benzodiazepines Scrn (NEGATIVE) NEGATIVE Urine Cocaine Screen (NEGATIVE) NEGATIVE U Cannabinoids Screen (NEGATIVE) NEGATIVE Urines Urine Color YELLOW Urine Appearance SLIGHTLY HAZY Urine pH (5.0 - 8.0) 6.0 Ur Specific [place] (1.010 - 1.030) 1.015 Urine Protein (NEGATIVE) NEGATIVE Urine Ketones (NEGATIVE) NEGATIVE Urine Blood (NEGATIVE) NEGATIVE Urine Nitrite (NEGATIVE) NEGATIVE Urine Bilirubin (NEGATIVE) NEGATIVE Urine Urobilinogen (0.2 - 1.0 EU/dL) 0.2 Ur Leukocyte Esterase (NEGATIVE) POSITIVE Urine RBC (0 - 1 rbc/hpf) 0-1 Urine WBC (0 - 1 wbc/hpf) 5-10 Ur Epithelial Cells (0 - 5 EPI/hpf) 1-3 Urine Bacteria (NONE SEEN) FEW (1+) Urine Glucose (NEGATIVE) NEGATIVE Urine Comment CULTURE INDICATED 09/09 1534 Chemistry Plasma Sodium (136 - 145 mmol/L) 142 Plasma Potassium (3.5 - 5.1 mmol/L) 4.0 Plasma Chloride (98 - 107 mmol/L) 107 CO2 (Enzymatic) (21 - 32 mmol/L) 25 BUN (7 - 18 mg/dL) 14 Creatinine (0.6 - 1.3 mg/dL) 0.8 Est GFR ( Amer) (mL/min) >60 Est GFR (Non-Af Amer) (mL/min) >60 Glucose (70 - 110 mg/dL) 100 Plasma Calcium (8.5 - 10.1 mg/dL) 8.3 Plasma Magnesium (1.8 - 2.4 mg/dL) 1.8 Total Bilirubin (0.0 - 1.0 mg/dL) 0.3 AST (15 - 37 U/L) 10 ALT (12 - 78 U/L) 27 Alkaline Phosphatase (46 - 116 U/L) 59 Creatine Kinase (24 - 260 U/L) 125 Troponin (0.00 - 1.5 ng/mL) <0.05 Total Protein (6.4 - 8.2 g/dL) 7.2 Albumin (3.3 - 5.0 g/dL) 3.7 Coagulation INR (0.8 - 1.2) 1.0 D-Dimer, Quantitative (0.27 - 0.52 ug/mLFEU) < 0.27 Hematology WBC (4.5 - 11.5 K/uL) 7.1 RBC (4.00 - 5.20 M/uL) 4.65 Hgb (12.0 - 16.0 gm/dL) 13.6 Hct (36.0 - 46.0 %) 40.7 MCV (80 - 100 fL) 88 MCH (26 - 34 pg) 29 RDW (11.6 - 14.8 %) 13.3 Neut % (Auto) (50 - 75 %) 56.5 Lymph % (Auto) (25 - 40 %) 29.8 [place] % (Auto) (3 - 14 %) 8.9 Eos % (Auto) (0 - 4 %) 4.4 Baso % (Auto) (0 - 2 %) 0.4 Plt Count, EDTA (150 - 400 K/uL) 222 PUBS MCHC (31 - 37 g/dL) 34 Microbiology Date/Time Procedure - Status Source Growth 09/09 2254 Urine Culture - RECD URINE CC Discharge Instructions/Meds Patient was instructed to continue a daily baby aspirin until her stress test could be performed. She will follow up with her PCP this week. She will also take a daily OTC H2 faby or PPI of her choice and was instructed to avoid NSAIDs for pain control. E&M Codes Discharge: Observation - All/[id number]
--- NOTE | 2016-09-10 22:31 | ED MED RECONCILIATION SUMMARY ---
Patient: CHRISTA BANGURA Medication Reconciliation Report [facility] VisitID: [id number] [address] [place] [address] 45y, F Registration Date/Time: 09/09/2016 Weight: 122.4 kg Height/Length: 68 in. BMI: 41.0 ALLERGIES: No Known Drug Allergy The patient's Home Medications are listed below: THE FOLLOWING MEDICATIONS NEED TO BE RECONCILED: Baclofen 1 tab, at bedtime Buproban Oral (150 mg) 1 tablet, TID Naproxen Oral (500 mg), 3x a day Ventolin HFA Inhalation 1 puff ZyrTEC Allergy Oral (10 mg) 1 tablet The source(s) of the original Home Medication information: Not obtained. The following Medications were given to the patient in the Emergency Department: Aspirin [PO] PO 325 mg, administered: 09/09/2016 3:51:00 PM Nitroglycerin [SL] SL 0.4 mg, administered: 09/09/2016 3:52:00 PM NITROGLYCERIN PASTE [TOPICAL] Topical 1 in., administered: 09/09/2016 3:52:00 PM Lovenox [Subcutaneous] Subcutaneous 100 mg, administered: 09/09/2016 4:45:00 PM The following Medications were prescribed to the patient: None.
--- NOTE | 2016-09-10 22:31 | ED MAR SUMMARY ---
..... Medication Administration Record [facility] [address] [place] [address] Patient: CHRISTA BANGURA Visit ID: [id number] 45y, F Weight: 122.4 kg Height/Length: 68 in BMI: 41 ALLERGIES: No Known Drug Allergy Given 15:51 09/09/2016 Jac Frias R.N. Medication Administered: ASPIRIN [PO], Dose: 325 mg Tablets PO. Medication Ordered: Aspirin PO 325 mg (NOW). Given 15:52 09/09/2016 Jac Frias R.N. Medication Administered: NITROGLYCERIN [SL], Dose: 0.4 mg Tablets SL. Medication Ordered: NitroGLYCERIN SL 0.4 mg (x3 PRN Chest Pain). Given 15:52 09/09/2016 Jac Frias R.N. Medication Administered: NITROGLYCERIN PASTE [TOPICAL], Dose: 1 in. Paste Topical. Medication Ordered: NitroGLYCERIN Paste Topical 1 in. (NOW, to ). Given 16:45 09/09/2016 Mandi Phelan R.N. Medication Administered: LOVENOX [SUBCUTANEOUS] (ENOXAPARIN SODIUM), Dose: 100 mg Subcutaneous. Medication Ordered: Lovenox Subcut 100 mg (HIGH ALERT MEDICATION, NOW).
--- NOTE | 2016-09-10 22:31 | ED MAR SUMMARY ---
..... Medication Administration Record [facility] [address] [place] [address] Patient: CHRISTA BANGURA Visit ID: [id number] 45y, F Weight: 122.4 kg Height/Length: 68 in BMI: 41 ALLERGIES: No Known Drug Allergy Given 15:51 09/09/2016 Jac Frias R.N. Medication Administered: ASPIRIN [PO], Dose: 325 mg Tablets PO. Medication Ordered: Aspirin PO 325 mg (NOW). Given 15:52 09/09/2016 Jac Frias R.N. Medication Administered: NITROGLYCERIN [SL], Dose: 0.4 mg Tablets SL. Medication Ordered: NitroGLYCERIN SL 0.4 mg (x3 PRN Chest Pain). Given 15:52 09/09/2016 Jac Frias R.N. Medication Administered: NITROGLYCERIN PASTE [TOPICAL], Dose: 1 in. Paste Topical. Medication Ordered: NitroGLYCERIN Paste Topical 1 in. (NOW, to ). Given 16:45 09/09/2016 Mandi Phelan R.N. Medication Administered: LOVENOX [SUBCUTANEOUS] (ENOXAPARIN SODIUM), Dose: 100 mg Subcutaneous. Medication Ordered: Lovenox Subcut 100 mg (HIGH ALERT MEDICATION, NOW).
--- NOTE | 2016-09-10 22:31 | ED DISCHARGE INSTRUCTIONS ---
Patient: CHRISTA BANGURA General Instructions [facility] VisitID: [id number] [address] [place] [address] 45y, F Registration Date/Time: 09/09/2016 Precordial chest pain characterized as "tightness" .12 lead EKG performed. (Electronically signed by Mando Diaz DO 09/09/2016 21:34)
--- NOTE | 2016-09-10 22:31 | ED DISCHARGE INSTRUCTIONS ---
Patient: CHRISTA BANGURA General Instructions [facility] VisitID: [id number] [address] [place] [address] 45y, F Registration Date/Time: 09/09/2016 Precordial chest pain characterized as "tightness" .12 lead EKG performed. (Electronically signed by Mando Diaz DO 09/09/2016 21:34)
--- NOTE | 2016-09-10 22:31 | ED MED RECONCILIATION SUMMARY ---
Patient: CHRISTA BANGURA Medication Reconciliation Report [facility] VisitID: [id number] [address] [place] [address] 45y, F Registration Date/Time: 09/09/2016 Weight: 122.4 kg Height/Length: 68 in. BMI: 41.0 ALLERGIES: No Known Drug Allergy The patient's Home Medications are listed below: THE FOLLOWING MEDICATIONS NEED TO BE RECONCILED: Baclofen 1 tab, at bedtime Buproban Oral (150 mg) 1 tablet, TID Naproxen Oral (500 mg), 3x a day Ventolin HFA Inhalation 1 puff ZyrTEC Allergy Oral (10 mg) 1 tablet The source(s) of the original Home Medication information: Not obtained. The following Medications were given to the patient in the Emergency Department: Aspirin [PO] PO 325 mg, administered: 09/09/2016 3:51:00 PM Nitroglycerin [SL] SL 0.4 mg, administered: 09/09/2016 3:52:00 PM NITROGLYCERIN PASTE [TOPICAL] Topical 1 in., administered: 09/09/2016 3:52:00 PM Lovenox [Subcutaneous] Subcutaneous 100 mg, administered: 09/09/2016 4:45:00 PM The following Medications were prescribed to the patient: None.
== END 2016-09-10 10:30 | disposition home or self-care (01) ==
LOC: ED SRH 15:15 → TRANS SRH 16:46 → ACUTE2 SRH 17:25
PROVIDERS: ADMIT Emergency Medicine
DX: R07.9 Chest pain, unspecified (principal); R68.84 Jaw pain; K21.9 Gastro-esophageal reflux disease without esophagitis; Z79.1 Long term (current) use of non-steroidal anti-inflammatories (NSAID); J45.909 Unspecified asthma, uncomplicated; G47.33 Obstructive sleep apnea (adult) (pediatric); M62.830 Muscle spasm of back; Z82.49 Family history of ischemic heart disease and other diseases of the circulatory system
CPT/HCPCS: 29230; 90004; 90047; 90074; 90100; 90469; 90616; 91286; 91320; 91556; 92530; 92610; 92690; 92720; 92760; 92761; 92762; 92763; 92764; 92765; 92766; 92767; 93070; 93140; 94060; 95059